=== PATIENT | female | born 1970 | race Asian ===

== ENCOUNTER 2018-12-29 15:50 | Emergency (ER) | payer OTHER ==
[~2018-12-29] VITALS: Ht 167.6 cm; Wt 66.7 kg
[2018-12-29 16:16] VITALS: Ht 167.6 cm; Wt 66.7 kg
[2018-12-29 18:26] VITALS: BP 142/95
== END 2018-12-29 18:26 | disposition home or self-care (01) ==
LOC: ED 15:50
DX: S52.501A Unspecified fracture of the lower end of right radius, initial encounter for closed fracture (principal); M79.652 Pain in left thigh; I10 Essential (primary) hypertension; W18.30XA Fall on same level, unspecified, initial encounter; Y93.89 Activity, other specified; Y92.89 Other specified places as the place of occurrence of the external cause; Y99.8 Other external cause status
CPT/HCPCS: Q0092